=== PATIENT | male | born 1950 | race Caucasian/White ===

== ENCOUNTER 2016-11-08 | Outpatient (CLI) | payer MEDICARE, OTHER | END 2016-11-08 10:05 | disposition home or self-care (01) | DX: Z13.6 Encounter for screening for cardiovascular disorders (principal) ==

== ENCOUNTER 2017-08-18 13:41 | Outpatient (CLI) | payer MEDICARE ==
[2017-08-18] MEDS ORDERED: IOPAMIDOL-300 50 ML VIAL ONE (13:57)
[2017-08-18] MEDS ORDERED: IOPAMIDOL-300 100 ML VIAL ONE (13:57)
[2017-08-18 14:15] LABS: BASOPHILS % (AUTO) 0.4 %; EOSINOPHILS # (AUTO) 0.1 10^3/uL (0.0-0.7); HCT - HEMATOCRIT 44.3 % (42.0-52.0); HGB - HEMOGLOBIN 14.8 g/dL (14.0-18.0); LYMPHOCYTES # (AUTO) 1.6 10^3/uL (1.5-3.5); LYMPHOCYTES % (AUTO) 16.6 %; MEAN CORPUSCULAR HEMOGLOBIN 28.9 pg (27.0-31.0); MEAN CORPUSCULAR HGB CONC 33.5 g/dL (32.0-36.0); MEAN CORPUSCULAR VOLUME 86.2 fL (80.0-94.0); MEAN PLATELET VOLUME 8.2 fL (7.4-11.4); MONOCYTES # (AUTO) 1.1 10^3/uL (0.0-1.0); MONOCYTES % (AUTO) 11.5 %; NEUTROPHILS # (AUTO) 6.9 10^3/uL (1.5-6.6); NEUTROPHILS % (AUTO) 70.5 %; RED BLOOD COUNT 5.14 10^6/uL (4.70-6.10); RED CELL DISTRIBUTION WIDTH 13.7 % (12.0-15.0); UNCORRECTED WHITE BLOOD COUNT 9.8 x10^3/uL; WHITE BLOOD COUNT 9.8 x10^3/uL (4.8-10.8)
[2017-08-18 14:29] LABS: ALBUMIN/GLOBULIN RATIO 1.4 (1.0-2.2); BILIRUBIN,TOTAL 1.3 mg/dL (0.2-1.0); CALCIUM 9.8 mg/dL (8.5-10.3); CREATININE 0.9 mg/dL (0.6-1.2); POTASSIUM 3.9 mmol/L (3.5-5.0); TOTAL PROTEIN 7.4 g/dL (6.7-8.2)
--- NOTE | 2017-08-18 16:05 | CT Report ---
CT ABDOMEN AND PELVIS WITH CONTRAST: 08/18/2017 CLINICAL INDICATION: Pain, nausea. COMPARISON: 01/20/2015 TECHNIQUE: Axial CT images of the abdomen and pelvis were obtained with 100 mL Isovue-300 intravenou sly as well as oral contrast. In accordance with CT protocol optimization, one or more of the following dose reduction techniques w ere utilized for this exam: automated exposure control, adjustment of mA and/or KV based on patient size, or use of iterative reconstructive technique. FINDINGS: Limited evaluation of the lung bases is unremarkable. Abdomen: The liver, spleen, pancreas, and adrenal glands are unremarkable. The kidneys demonstrate cortical cysts bilaterally. The right kidney demonstrates mild hydronephrosis and proximal hydrouret er, with a calculus in the proximal ureter measuring 5 mm. The left kidney demonstrates no hydroneph rosis. No bowel dilatation, free gas, or free fluid is present. The gallbladder is not dilated. No adenopathy is appreciated. Pelvis: The pelvic organs appear unremarkable. The appendix is seen in the right lower quadrant, an d is normal in caliber. No pelvic adenopathy or free fluid is present. Osseous structures demonstrate degenerative changes. IMPRESSION: A 5-MM CALCULUS IN THE PROXIMAL RIGHT URETER, PRODUCING MILD RIGHT HYDRONEPHROSIS. JOB #: [id number] EXT JOB #:[id number]
== END 2017-08-18 13:42 | disposition home or self-care (01) ==
LOC: LAB 13:41
PROVIDERS: ATTEND Nurse Practitioner Family
DX: N13.2 Hydronephrosis with renal and ureteral calculous obstruction (principal)
CPT/HCPCS: 36415; 74177; 80053; 85025; Q9967

== ENCOUNTER 2017-08-19 13:53 | Emergency (ER) | payer MEDICARE, OTHER ==
[2017-08-19] MEDS ORDERED: KETOROLAC 60 MG/2 ML VIAL IVP STA (14:16)
[2017-08-19] MEDS ORDERED: SODIUM CHLORIDE 0.9% 1,000 ML IV ONE (14:16)
[2017-08-19] MEDS ORDERED: ONDANSETRON 4 MG/2 ML VIAL IVP STA (14:16)
--- NOTE | 2017-08-19 14:19 | ED Physician Documentation ---
PD HPI ABD PAIN - Stated complaint Stated Complaint: ABD PX - Chief complaint Chief Complaint: Abd Pain - History obtained from History obtained from: Patient - History of Present Illness Timing - onset: Other (This is a 66-year-old gentleman with history of renal colic and hernia repair with mesh presents with 5 days of diffuse right-sided abdominal pain in waves. It is actually better now than it was earlier today. He is not eating or drinking much. He saw his physician and a workup was pursued, labs were done yesterday only remarkable for elevated BUN in the 30s and a CT was done showing a 5 mm proximal ureteral stone with hydronephrosis. He declines narcotic pain medication.) Review of Systems Constitutional: denies: Fever, Chills Cardiac: denies: Chest pain / pressure, Palpitations Respiratory: denies: Dyspnea, Cough GI: reports: Abdominal Pain, Nausea, Vomiting. denies: Constipation, Diarrhea PD PAST MEDICAL HISTORY - Past Medical History Past Medical History: Yes Cardiovascular: Hypertension Respiratory: None Endocrine/Autoimmune: Type 2 diabetes GI: Diverticulitis, Other : Frequency, Kidney stones, Other HEENT: Dental implants, Other Psych: None Musculoskeletal: None Derm: None - Past Surgical History Past Surgical History: Yes HEENT: Cataracts, Other - Present Medications Home Medications: Ambulatory Orders Medication Instructions Recorded Confirmed Losartan [Cozaar] 25 mg PO DAILY 03/10/14 12/09/14 Cholecalciferol (Vitamin D3) 5,000 units PO DAILY 09/08/14 12/09/14 [Vitamin D-3] metFORMIN [Glucophage] 1,000 mg PO BID 09/08/14 12/09/14 Naproxen 250 mg PO ONCE PRN 12/01/14 12/01/14 Naproxen 500 mg PO BID PRN #20 tablet 08/19/17 Omeprazole [PriLOSEC] 20 mg PO DAILY #14 capsule 08/19/17 Ondansetron HCl [Zofran] 4 mg PO Q6H PRN #10 tablet 08/19/17 Tamsulosin [Flomax] 0.4 mg PO DAILY #14 capsule 08/19/17 - Allergies Allergies/Adverse Reactions: Allergies Allergy/AdvReac Type Severity Reaction Status Date / Time No Known Drug Allergies Allergy Verified 08/19/17 14:03 - Social History Does the pt smoke?: No Smoking Status: Never smoker Does the pt drink ETOH?: No Does the pt have substance abuse?: Yes - Immunizations Immunizations are current?: Yes - POLST Patient has POLST: No PD ED PE NORMAL - Vitals Vital signs reviewed: Yes - General General: Alert and oriented X 3, No acute distress - HEENT HEENT: PERRL, EOMI - Neck Neck: Supple, no meningeal sign, No bony TTP - Cardiac Cardiac: RRR, No murmur - Respiratory Respiratory: No respiratory distress, Clear bilaterally - Abdomen Abdomen: Normal bowel sounds, Soft, Other (Mild right midabdominal tenderness without surgical signs) - Back Back: No CVA TTP, No spinal TTP - Derm Derm: Normal color, Warm and dry, No rash - Extremities Extremities: No deformity, No tenderness to palpate - Neuro Neuro: Alert and oriented X 3, Normal speech - Psych Psych: Normal mood, Normal affect Results - Vitals Vitals: Vital Signs - 24 hr 08/19/17 13:56 Temperature 37.0 C Heart Rate 75 Respiratory 20 Rate Blood Pressure 121/70 O2 Saturation 98 Oxygen O2 Source Room air - Labs Labs: Laboratory Tests 08/19/17 14:20 Urine Color YELLOW Urine Clarity CLEAR Urine pH 6.0 Ur Specific [place] 1.020 Urine Protein NEGATIVE Urine Glucose (UA) NEGATIVE Urine Ketones TRACE Urine Occult Blood LARGE H Urine Nitrite NEGATIVE Urine Bilirubin NEGATIVE Urine Urobilinogen 0.2 (NORMAL) Ur Leukocyte Esterase NEGATIVE Urine RBC TNTC H Urine WBC 6-10 H Ur Squamous Epith Cells FEW Squamous Urine Crystals 3-5 Calcium Oxalate Urine Bacteria Few Urine Mucus Moderate Strands Ur Oval Fat Bodies RARE Ur Microscopic Review INDICATED Urine Culture Comments INDICATED PD MEDICAL DECISION MAKING - ED course ED course: He was comfortable after the administration of IV fluids, Toradol, and Zofran, a copy of the CAT scan from yesterday was electronically made for him to follow- up with urology with. Departure - Departure Disposition: 01 Home, Self Care Clinical Impression: Renal colic on right side Condition: Good Record reviewed to determine appropriate education?: Yes Instructions: ED Stone Renal W Colic Prescriptions: Naproxen 500 mg PO BID PRN #20 tablet PRN Reason: Pain Omeprazole [PriLOSEC] 20 mg PO DAILY #14 capsule Ondansetron HCl [Zofran] 4 mg PO Q6H PRN #10 tablet PRN Reason: Nausea / Vomiting Tamsulosin [Flomax] 0.4 mg PO DAILY #14 capsule Comments: I recommend following up with the urologist, [facility] urology clinic phone number is [phone].
[2017-08-19 14:25] LABS: BILIRUBIN,URINE NEGATIVE (NEGATIVE)
[2017-08-19] MEDS ORDERED: SODIUM CHLORIDE FLUSH 0.9% 10 ML SYRINGE IVP ONE (14:25)
[2017-08-19 14:30] LABS: UA w/ MICROSCOPIC CHARGE YES
[2017-08-19] MEDS ORDERED: KETOROLAC 30 MG/ML VIAL ONE (14:35)
[2017-08-19] MEDS ORDERED: ONDANSETRON 4 MG/2 ML VIAL ONE (14:35)
[2017-08-19 14:36] LABS: UR CULTURE IF IND INDICATED
[2017-08-19 15:11] VITALS: BP 122/62
== END 2017-08-19 15:24 | disposition home or self-care (01) ==
LOC: ED 13:53
DX: N23 Unspecified renal colic (principal); I10 Essential (primary) hypertension; E11.9 Type 2 diabetes mellitus without complications; Z79.84 Long term (current) use of oral hypoglycemic drugs; Z87.442 Personal history of urinary calculi
CPT/HCPCS: 81001; 81003; 87086; 96361; 96374; 96375; 99283

== ENCOUNTER 2018-11-27 14:59 | Outpatient (CLI) | payer MEDICARE, OTHER ==
--- NOTE | 2018-11-27 16:15 | CT Report ---
Reason: ABDOMINAL PAIN,UNSPECIFIED Procedure Date: 11/27/2018 Accession Number: [id number] / [id number] Procedure: CT - Abdomen/Pelvis W/O CPT Code: FULL RESULT: EXAM: CT ABDOMEN AND PELVIS (CT KUB) EXAM DATE: 11/27/2018 03:38 PM. CLINICAL HISTORY: ABDOMINAL PAIN,UNSPECIFIED. COMPARISONS: ABDOMEN/PELVIS W/ 08/18/2017 3:11 PM. TECHNIQUE: Routine axial helical CT imaging was performed through the abdomen and pelvis without IV contrast. Reconstructions: Coronal and sagittal. In accordance with CT protocol optimization, one or more of the following dose reduction techniques were utilized for this exam: automated exposure control, adjustment of mA and/or KV based on patient size, or use of iterative reconstructive technique. FINDINGS: Lung Bases: Unremarkable. Right Kidney/Ureter: No nephrolithiasis or hydronephrosis. Exophytic cysts are seen in the upper and mid kidney measuring up to 3.4 cm similar to prior CT. Left Kidney/Ureter: Moderate hydronephrosis with 7 mm obstructing stone seen in the distal left ureter (image 89/3). This node demonstrates Hounsfield measurement just above 600. Additional 1 mm nonobstructing stone is seen in the upper pole left kidney. Exophytic cyst is seen in the upper pole left kidney and mid left kidney measuring up to 3.9 cm similar to prior CT. Other Solid Organs: Noncontrast images of the solid organs are grossly unremarkable. Gallbladder/Bile Ducts: Unremarkable. Peritoneal Cavity: No free fluid, free air or isidro adenopathy. Bowel is grossly unremarkable. Pelvic Organs: No bladder stones or wall thickening. Noncontrast images of the visualized pelvic organs are unremarkable. Vasculature: Unremarkable. Other: None. IMPRESSION: Moderate left-sided hydronephrosis with 7 mm obstructing stone seen in the distal left ureter. RADIA
== END 2018-11-27 15:00 | disposition home or self-care (01) ==
LOC: DI 14:59
PROVIDERS: ATTEND Nurse Practitioner Family
DX: N13.2 Hydronephrosis with renal and ureteral calculous obstruction (principal)
CPT/HCPCS: 74176

== ENCOUNTER 2022-04-14 18:03 | Emergency (ER) | payer MEDICARE, OTHER ==
[2022-04-14] MEDS ORDERED: KETOROLAC 15 MG/ML VIAL IVP STA (18:26)
--- NOTE | 2022-04-14 18:27 | ED Physician Documentation ---
PD HPI ABD PAIN - Stated complaint Stated Complaint: LEFT SIDE PX,VOMITING - Chief complaint Chief Complaint: Abd Pain - History obtained from History obtained from: Patient, Family - Additional information Additional information: 71-year-old gentleman with history of renal colic. Multiple kidney stones in the past and 4 episodes of lithotripsy. Developed left flank pain similar to prior renal colic acutely at 3 PM today. He has been vomiting but says he is not nauseous. Review of Systems Ten Systems: 10 systems reviewed and negative Constitutional: denies: Fever, Chills Cardiac: denies: Chest pain / pressure, Palpitations PD PAST MEDICAL HISTORY - Past Medical History Cardiovascular: Hypertension Respiratory: None Endocrine/Autoimmune: Type 2 diabetes GI: Diverticulitis, Other : Frequency, Kidney stones, Other HEENT: Dental implants, Other Psych: None Musculoskeletal: None Derm: None - Past Surgical History Past Surgical History: Yes HEENT: Cataracts, Other - Present Medications Home Medications: Ambulatory Orders Medication Instructions Recorded Confirmed Losartan [Cozaar] 25 mg PO DAILY 03/10/14 04/14/22 metFORMIN [Glucophage] 1,000 mg PO BID 09/08/14 04/14/22 Ibuprofen [Motrin] 800 mg PO Q8H PRN #14 tablet 04/14/22 Tamsulosin [Flomax] 0.4 mg PO DAILY #14 cap 04/14/22 glipiZIDE [Glucotrol] 5 mg PO BID 04/14/22 04/14/22 - Allergies Allergies/Adverse Reactions: Allergies Allergy/AdvReac Type Severity Reaction Status Date / Time No Known Drug Allergies Allergy Verified 04/14/22 18:10 - Social History Does the pt smoke?: No Smoking Status: Never smoker Does the pt drink ETOH?: No Does the pt have substance abuse?: Yes - Immunizations Immunizations are current?: Yes - POLST Patient has POLST: No PD ED PE NORMAL - Vitals Vital signs reviewed: Yes - General General: Alert and oriented X 3, Well developed/nourished, Other (Uncomfortable) - Cardiac Cardiac: RRR, No murmur - Respiratory Respiratory: No respiratory distress, Clear bilaterally - Abdomen Abdomen: Other (Tender over the right flank without surgical signs, no abdominal tenderness.) - Neuro Neuro: Alert and oriented X 3, Normal speech Results - Vitals Vitals: Vital Signs - 24 hr 04/14/22 04/14/22 18:08 19:27 Temperature 36.5 C Heart Rate 58 L 90 Respiratory 20 18 Rate Blood Pressure 159/72 H 150/65 H O2 Saturation 97 95 Oxygen O2 Source Room air - Labs Labs: Laboratory Tests 04/14/22 04/14/22 04/14/22 18:25 18:35 18:35 WBC 11.9 H RBC 5.61 Hgb 15.8 Hct 48.1 MCV 85.7 MCH 28.2 MCHC 32.8 RDW 13.1 Plt Count 263 MPV 10.1 Neut # (Auto) 9.9 H Lymph # (Auto) 1.2 L Stephens # (Auto) 0.7 Eos # (Auto) 0.0 Baso # (Auto) 0.1 Absolute Nucleated RBC 0.00 Nucleated RBC % 0.0 Sodium 138 Potassium 3.8 Chloride 103 Carbon Dioxide 23 Anion Gap 12.0 BUN 28 H Creatinine 1.1 Estimated GFR (MDRD) 66 L Glucose 241 H Calcium 10.4 H Total Bilirubin 0.8 AST 28 ALT 50 Alkaline Phosphatase 59 Total Protein 7.6 Albumin 4.2 Globulin 3.4 Albumin/Globulin Ratio 1.2 Urine Color YELLOW Urine Clarity HAZY Urine pH 5.0 Ur Specific [place] >=1.030 H Urine Protein 30 H Urine Glucose (UA) 500 H Urine Ketones 15 H Urine Occult Blood LARGE H Urine Nitrite NEGATIVE Urine Bilirubin NEGATIVE Urine Urobilinogen 0.2 (NORMAL) Ur Leukocyte Esterase NEGATIVE Urine RBC TNTC H Urine WBC 0-3 Ur Squamous Epith Cells RARE Squamous Urine Crystals 6-10 Calcium Oxalate Urine Bacteria Rare Urine Mucus Few Strands Ur Microscopic Review INDICATED Urine Culture Comments NOT INDICATED PD MEDICAL DECISION MAKING - ED course ED course: 71-year-old gentleman with history of renal colic presents with symptoms reminiscent of same and is found to have a 6 mm left ureteral stone with other incidental findings that were discussed with patient and at bedside. They were given a copy of the CD with her CAT scan on it as well as the radiologist read and there labs and we discussed his elevated blood sugar as well. He adamantly did not want narcotics due to side effects but is feeling much better after Toradol and Zofran IV and some IV fluids. Departure - Departure Disposition: 01 Home, Self Care Clinical Impression: Renal colic on left side, Uncontrolled type 2 diabetes mellitus, Renal cyst, Appendicolith Condition: Good Record reviewed to determine appropriate education?: Yes Instructions: ED Stone Renal W Colic Prescriptions: Tamsulosin [Flomax] 0.4 mg PO DAILY #14 cap Ibuprofen [Motrin] 800 mg PO Q8H PRN #14 tablet PRN Reason: PAIN &/OR FEVER Comments: You are seen today for renal colic and we found a 6 mm stone in the left distal ureter 1.9 cm above the ureterovesicular junction. He also have bilateral renal cysts, nonobstructing stones in the left kidney, right basilar atelectasis and an appendicolith. Lab work was notable for elevated blood sugar at 241. Drink plenty of fluids, follow-up with your urologist, next available appointment. Take the copy of the CAT scan read and CD and labs with you to that appointment. Return for new or worsening symptoms or if pain is uncontrolled.
[2022-04-14] MEDS ORDERED: ONDANSETRON 4 MG/2 ML VIAL IVP STA (18:29)
[2022-04-14 18:43] LABS: BASOPHILS # (AUTO) 0.1 10^3/uL (0.0-0.1); BASOPHILS % (AUTO) 0.4 %; EOSINOPHILS % (AUTO) 0.3 %; HCT - HEMATOCRIT 48.1 % (42.0-52.0); HGB - HEMOGLOBIN 15.8 g/dL (14.0-18.0); LYMPHOCYTES # (AUTO) 1.2 10^3/uL (1.5-3.5); LYMPHOCYTES % (AUTO) 9.9 %; MEAN CORPUSCULAR HEMOGLOBIN 28.2 pg (27.0-31.0); MEAN CORPUSCULAR HGB CONC 32.8 g/dL (32.0-36.0); MEAN CORPUSCULAR VOLUME 85.7 fL (80.0-94.0); MEAN PLATELET VOLUME 10.1 fL (7.4-11.4); MONOCYTES # (AUTO) 0.7 10^3/uL (0.0-1.0); MONOCYTES % (AUTO) 5.7 %; NEUTROPHILS # (AUTO) 9.9 10^3/uL (1.5-6.6); NEUTROPHILS % (AUTO) 83.3 %; PLT - PLATELET COUNT 263 10^3/uL (130-450); RED BLOOD COUNT 5.61 10^6/uL (4.70-6.10); RED CELL DISTRIBUTION WIDTH 13.1 % (12.0-15.0); WHITE BLOOD COUNT 11.9 x10^3/uL (4.8-10.8)
[2022-04-14 18:53] LABS: ALBUMIN 4.2 g/dL (3.2-5.5); ALBUMIN/GLOBULIN RATIO 1.2 (1.0-2.2); BILIRUBIN,TOTAL 0.8 mg/dL (0.2-1.0); CALCIUM 10.4 mg/dL (8.5-10.3); CREATININE 1.1 mg/dL (0.6-1.2); POTASSIUM 3.8 mmol/L (3.5-5.0); TOTAL PROTEIN 7.6 g/dL (6.7-8.2)
--- NOTE | 2022-04-14 19:01 | CT Report ---
PROCEDURE: Abdomen/Pelvis WO INDICATIONS: L flank pain TECHNIQUE: Noncontrast 5 mm thick sections acquired from the diaphragms to the symphysis. 5 mm coronal and sagi ttal reformats were then performed. For radiation dose reduction, the following was used: automated exposure control, adjustment of mA and/or kV according to patient size. COMPARISON: 07/07/2020, 11/27/2018, 08/18/2017, 01/20/2015. FINDINGS: Image quality: Excellent. ABDOMEN: Lung bases: Bibasilar scattered atelectasis is seen. Heart size is normal. Solid organs: Liver and spleen are normal in size. Gallbladder is within normal limits. Pancreas i s normal in contours. No adrenal nodules. Bilateral kidneys are normal in size. Moderate left-sided hydronephrosis and proximal to mid hydroureter is seen with [id number] left perinephric fat str anding. 6 mm stone is seen in distal left ureter approximately 1.9 cm proximal to left UVJ and measur es 473 Hounsfield unit in density series 3 image 128. Bilateral renal cysts are seen. Nonobstructing stones are seen in upper and lower pole of left kidney measures up to 2 mm in size. No right-sided hy dronephrosis or hydroureter. Peritoneum and bowel: Unenhanced bowel loops demonstrate normal wall thickness and caliber. No free fluid or air. Appendix is visualized and is normal in size and wall thickness. 5 mm appendicolith i s seen within the midportion of the appendix. Nodes and vessels: No retroperitoneal or mesenteric ad enopathy by size criteria. Aorta and inferior vena cava are normal in caliber. Miscellaneous: No ventral hernias. PELVIS: Genitourinary: Bladder wall thickness is normal. Enlarged prostate gland is seen with coarse parench ymal calcifications unchanged from prior studies. Miscellaneous: No inguinal hernias or adenopathy. Bones: No suspicious bony lesions. No vertebral body compression fractures. Degenerative disc dise ase throughout thoracic and lumbar spine is seen. IMPRESSION: 1. 6 mm left distal ureteral stone measures 473 Hounsfield unit in density. Moderate left-sided hydro nephrosis and proximal to mid hydroureter. 2. Bilateral renal cysts. Nonobstructing stones in left kidney as above. No right-sided hydronephrosi s or hydroureter. No gross abnormality is seen in urinary bladder. Enlarged prostate gland with mass effect on floor of urinary bladder. 3. Right basilar atelectasis. 4. No bowel obstruction or abnormal bowel wall thickening. No free fluid of free air. Normal appendix . 5 mm appendicolith in mid appendiceal lumen. Reviewed by: Bob Wayne MD on 04/14/2022 6:59 PM PDT Approved by: Bob Wayne MD on 04/14/2022 6:59 PM PDT Station ID: [id number]
[2022-04-14 19:04] LABS: BILIRUBIN,URINE NEGATIVE (NEGATIVE); CLARITY,URINE HAZY (CLEAR); GLUCOSE, URINE (UA) 500 mg/dL (NEGATIVE); KETONES,URINE (UA) 15 mg/dL (NEGATIVE); LEUKOCYTE ESTERASE, URINE NEGATIVE (NEGATIVE); NITRITE,URINE NEGATIVE (NEGATIVE); OCCULT BLOOD,URINE LARGE (NEGATIVE); PROTEIN,URINE 30 mg/dL (NEGATIVE); UROBILINOGEN,URINE 0.2 (NORMAL) E.U./dL (NORMAL)
[2022-04-14] MEDS ORDERED: TAMSULOSIN 0.4 MG CAPSULE PO STA (19:08)
[2022-04-14 19:11] LABS: RBC,URINE TNTC /HPF (0-5); SQUAMOUS EPITHELIAL CELL,UR RARE Squamous (<= Few); WBC,URINE 0-3 /HPF (0-3)
[2022-04-14 19:12] LABS: BACTERIA,URINE Rare /HPF (None Seen); CRYSTALS,URINE 6-10 Calcium Oxalate /LPF; MUCUS,URINE Few Strands
[2022-04-14 20:09] VITALS: BP 148/78
== END 2022-04-14 20:08 | disposition home or self-care (01) ==
LOC: ED 18:03
DX: N23 Unspecified renal colic (principal); K38.9 Disease of appendix, unspecified; N28.1 Cyst of kidney, acquired; E11.65 Type 2 diabetes mellitus with hyperglycemia; Z79.84 Long term (current) use of oral hypoglycemic drugs
CPT/HCPCS: 36415; 74176; 80053; 81001; 85025; 96374; 99284; A9270; 81003; 87086

== ENCOUNTER 2024-04-13 18:17 | Outpatient (CLI) | payer MEDICARE, OTHER ==
--- NOTE | 2024-04-14 08:35 | Ultrasound Report ---
PROCEDURE: Renal (Retroperitoneal) INDICATIONS: NEPHROLITHIASIS TECHNIQUE: Real-time scanning was performed of the retroperitoneal organs, with image documentation. COMPARISON: CT of abdomen and pelvis dated 04/14/2022 and 07/07/2020. FINDINGS: Kidneys: Kidneys are normal in size. Right kidney measures 12.9 cm long; left kidney measures 13 cm long. Right renal cortical thickness is 1.4 cm; left renal cortical thickness is 1.1 cm. No solid masses, hydronephrosis, or obstructing nephrolithiasis. Possible 2 mm nonobstructing stone versus vas cular calcification is seen in mid pole left kidney. Simple appearing cysts are noted in bilateral ki dneys measures up to 2.4 x 3.4 cm in size in lateral cortex of mid pole right kidney, 2.8 x 2.7 cm in size in lower pole right kidney, 2.4 x 1.5 x 2.0 cm in mid pole left kidney and 1.7 x 2.6 x 2.2 cm i n size in lower pole left kidney. Bladder: Pre-void bladder volume is 97.4 mL. Post-void residual is 7.6 mL. Pre-void images demonst rate no intraluminal masses or stones. On pre-void images, bilateral ureteral jets are noted with co filiberto Doppler interrogation. (Of note, ureteral jets may not be detectable in up to 25% of cases due t o insufficient differences in specific gravity between ureteral and bladder urine). Miscellaneous: No free abdominal fluid. IMPRESSION: 1. Simple appearing bilateral renal cysts as described above. No solid renal lesion. 2 mm nonobstruct ing stone versus vascular calcification versus parenchymal calcification from prior injury is seen in mid pole left kidney. No obstructing stones. No hydronephrosis. 2. Normal-appearing partially distended urinary bladder with small postvoid residual. Reviewed by: Bob Buckley MD on 04/14/2024 8:34 AM PDT Approved by: Bob Buckley MD on 04/14/2024 8:34 AM PDT Station ID: [id number]
== END 2024-04-13 18:18 | disposition home or self-care (01) ==
LOC: DI 18:17
PROVIDERS: ATTEND Nurse Practitioner
DX: N28.1 Cyst of kidney, acquired (principal); R93.422 Abnormal radiologic findings on diagnostic imaging of left kidney